=== PATIENT | female | born 1955 | race Caucasian/White ===

== ENCOUNTER 2019-02-03 08:27 | Inpatient (IN) | payer MEDICARE, BC ==
[~2019-02-03] VITALS: Ht 167.6 cm; Wt 73.0 kg
--- NOTE | 2019-02-03 08:35 | NUR ---
ROBIN, FROM HOME, C/O LEFT HIP PAIN S/P FALL LAST NIGHT, -KO, 03/05PS. PATIENT A/OX4, BREATHING EVEN AND UNALBORED, KEPT COMFORTABLE IN BED, CHANGED INTO GOWN AND ATTACHED TO SENIOR VICE PRESIDENT. NEEDS ATTENDED. DR. RUSH AT BEDSIDE FOR EVAL.
[2019-02-03] MEDS ORDERED: ONDANSETRON HCL/PF 4 MG/2 ML VIAL ONE (08:41)
[2019-02-03] MEDS ORDERED: HYDROMORPHONE 1 MG/1 ML DISP.SYRIN ONE ×2 (08:41→09:06)
[2019-02-03 08:51] LABS: BASOPHILS # (AUTO) 0.1 /CMM (0.0-0.2); BASOPHILS % (AUTO) 0.7 % (0.0-2.0); EOSINOPHILS % (AUTO) 0.3 % (0.0-6.0); HEMATOCRIT 43 % (33-45); HEMOGLOBIN 14.7 g/dL (11.5-14.8); LYMPHOCYTES # (AUTO) 1.2 /CMM (0.8-4.8); LYMPHOCYTES % (AUTO) 10.9 % (20.0-44.0); MEAN CORPUSCULAR HGB CONC 34 g/dl (31.0-36.0); MEAN CORPUSCULAR VOLUME 92 fL (82-100); MONOCYTES % (AUTO) 9.3 % (2.0-12.0); NEUTROPHILS # (AUTO) 8.7 /CMM (1.8-8.9); NEUTROPHILS % (AUTO) 78.8 % (43.0-81.0); PLATELET COUNT (AUTO) 305 /CMM (150-450); RED BLOOD CELL COUNT(AUTO) 4.66 MIL/uL (4.0-5.2); WHITE BLOOD COUNT (AUTO) 11.1 K/uL (4.3-11.0)
[2019-02-03 08:57] LABS: CALCIUM, SERUM 8.9 mg/dL (8.5-10.1); CREATININE 0.9 mg/dL (0.6-1.3); POTASSIUM 4.3 mmol/L (3.5-5.1)
[2019-02-03] MEDS ORDERED: HYDROMORPHONE INJ 2 MG/ML DISP.SYRIN IV ONE (09:00)
[2019-02-03] MEDS ORDERED: HYDROMORPHONE 1 MG/1 ML DISP.SYRIN IV ONE (09:00)
[2019-02-03] MEDS ORDERED: ONDANSETRON HCL/PF 4 MG/2 ML VIAL IVP ONE (09:00)
[2019-02-03] MEDS ORDERED: IV NS 0.9% 500 ML BAG IV ONE (09:00)
[2019-02-03 09:02] LABS: ALBUMIN 3.7 g/dL (3.4-5.0); BILIRUBIN,DIRECT 0.1 mg/dL (0.0-0.2); BILIRUBIN,TOTAL 0.6 mg/dL (0.2-1.0); TOTAL PROTEIN, SERUM 7.5 g/dL (6.4-8.2)
[2019-02-03 09:09] LABS: APPEARANCE,URINE Clear (CLEAR); BILIRUBIN,URINE Negative (NEGATIVE); BLOOD, URINE Large Ery/uL (NEGATIVE); COLOR,URINE Yellow (YELLOW); KETONES,URINE Negative (NEGATIVE); LEUKOCYTE ESTERASE ,URINE Negative (NEGATIVE); NITRITE, URINE Negative (NEGATIVE); PH,URINE 5.5 (5.0-8.0); PROTEIN,URINE Negative (NEGATIVE); UGLUCOSE Negative (NEGATIVE); UROBILINOGEN,URINE 0.2 EU/dL (0.2)
[2019-02-03 09:17] LABS: BACTERIA,URINE Few /HPF (None Seen); SQUAMOUS EPITHELIAL CELL,UR Few /HPF (None Seen); WBC,URINE 0-2 /HPF (0-3)
--- NOTE | 2019-02-03 09:30 | NUR ---
RING PACKER AT BEDSIDE FOR X-RAY.
--- NOTE | 2019-02-03 09:34 | NUR ---
called ortho. Bon Schwartz personal loan specialist.
[2019-02-03] MEDS ORDERED: ESCI10TA PO (09:52)
[2019-02-03] MEDS ORDERED: METO-358 PO (09:52)
--- NOTE | 2019-02-03 10:04 | NUR ---
[facility] ASSIGNMENT [id number]
--- NOTE | 2019-02-03 10:28 | NUR ---
REPORT GIVEN TO CLOVIS CORBIN FOR SOLO.
--- NOTE | 2019-02-03 10:57 | NUR ---
RECEIVED A CALL BACK FROM DR. ESCOTO. ACCEPTED PATIENT. PAGED [facility] FOR ADMISSION.
--- NOTE | 2019-02-03 11:14 | NUR ---
[facility] PAGED
[2019-02-03 11:40] VITALS: BP 192/92
--- NOTE | 2019-02-03 11:40 | NUR ---
WREATH INSPECTOR NOTES RECEIVED PATIENT FROM ER VIA [facility]. PATIENT HAD GLF, DIAGNOSIS OF LEFT HIP FRACTURE. PATIENT A/OX4. ABLE TO MAKE NEEDS KNOWN. NOT IN ANY FOR OF DISTRESS. NO SOB, TOLERATING ROOM AIR, SATTING 96%. DENIED PAIN AT THIS TIME, JUST MEDICATED IN ER. IV ACCESS LEFT AC 20 INTACT AND PATENT. LEON CATH IN PLACE DRAINING CLEAR YELLOW URINE. ORIENTED PATIENT TO THE ROOM, TAUGHT HER HOW TO USE THE CALL LIGHT AND INSTRUCTED TO PRESS CALL LIGHT FOR ASSISTANCE. BELONGINGS CHECKED BY JOSE BLACK. PATIENT REFUSED SKIN ASSESSMENT/BODY CHECK AND PHOTOS IT IS VERY PAINFUL TO MOVE, WILL COMEBACK LATER. KEPT PATIENT SAFE AND COMFORTABLE. BED IN LOW/LOCKED POSITION, SIDERAILSUPX2,CALL LIGHT IN REACH. WILL CONTINUE TO MONOTR ACCORDINGLY.
[2019-02-03] MEDS ORDERED: Z GUARD REMEDY 2 OZ OINT TP PRN (12:00)
[2019-02-03] MEDS ORDERED: MAGNESIUM HYDROXIDE 30 ML UDC PO PRN (12:00)
[2019-02-03] MEDS ORDERED: MAG HYDROX/AL HYDROX/SIMETH 30 ML UDC PO PRN (12:00)
[2019-02-03] MEDS ORDERED: HYDROCODONE/APAP 5/325MG 1 EACH TABLET PO PRN (12:00)
[2019-02-03] MEDS ORDERED: ACETAMINOPHEN 325 MG TABLET PO PRN (12:00)
[2019-02-03] MEDS ORDERED: MORPHINE SULFATE INJ 2 MG/ML DISP.SYRIN IV PRN (12:00)
[2019-02-03] MEDS ORDERED: ONDANSETRON HCL/PF 4 MG/2 ML VIAL IVP PRN (12:00)
[2019-02-03] MEDS ORDERED: ZOLPIDEM TARTRATE 5 MG TABLET PO PRN (12:00)
[2019-02-03] MEDS: HYDROCODONE/APAP 5/325MG 1 EACH TABLET PO PRN ×3 (12:23→21:41)
--- NOTE | 2019-02-03 12:23 | NUR ---
DR CARY AT BEDSIDE TALKING TO PATIENT
[2019-02-03] MEDS: METOPROLOL SUCCINATE 50 MG TAB.SR.24H PO SCH (12:41)
[2019-02-03 13:45] VITALS: BP 131/63
--- NOTE | 2019-02-03 14:00 | NUR ---
RN NOTES CAME BACK TO REASSESS PATINE SKIN AND BODY CHECK. PATIENT STILL REFUSED. PER PATIENT, "I DONT WANT TO RISK IT. I HAVE NO WOUNDS.". PATIENT STILL REFUSED BODY CHECK AND REFUSED TO BE MOVED EVEN WITH PAIN MEDICATIONS.
[2019-02-03 16:00] VITALS: BP 160/84
--- NOTE | 2019-02-03 16:40 | NUR ---
RN NOTES PATIENT REPORTED THAT MORPHINE 2MG Q4H EFFECTIVENESS DOESNT LAST LONG ENOUGH. NOTIFIED DR CARY, ORDERED TO CHANGE FREQUENCY TO Q3H PRN. ORDER NOTED AND WILL CARRY OUT
[2019-02-03] MEDS: MORPHINE SULFATE INJ 2 MG/ML DISP.SYRIN IV PRN ×3 (16:51→23:03)
[2019-02-03] MEDS ORDERED: ESCITALOPRAM OXALATE (10 MG) 10 MG TABLET PO ONE (17:00)
--- NOTE | 2019-02-03 19:30 | NUR ---
RN PM OPENING NOTE BEDSIDE REPORT RECIEVED FROM CLOVIS CORBIN. PATIENT SEEN RESTING IN BED IN NO APPARENT DISTRESS. HERE FOR LEFT HIP FX. POC REVIEWED QUESTIONS CONCERNS ADDRESSED.PATIENT BREATHING EVEN AND UNLABORED ON RA. PER REPORT THERE IS A PLAN TO HAVE PATIENT TRANSFERRED TO [facility] TOMORROW. PAIN MANAGEMENT PLAN REVIEWED WITH PATIENT REPORTS THAT PAIN TO HER LEFT HIP IS RATED AT 7/10. WILL CONT TO MONITOR.
--- NOTE | 2019-02-03 19:41 | NUR ---
RN CLOSING NOTES PATIENT IN BED RESTING. ALL NEEDS ATTENDED AND PROVIDED. ALL DUE MEDICATIONS GIVEN ORDERED. KEPT PATIENT SAFE AND COMFORTABLE. BED IN LOW/LOCKED POSITION, SIDERAILS UPX2,CALL LIGHTS IN REACH. ENDORSED TO NIGHT RN FOR SOLO.
[2019-02-03 20:00] VITALS: BP 112/66
--- NOTE | 2019-02-03 21:05 | NUR ---
patient refusing to have skin evaluated. patient refusing to be repositiened and have old sheets and blankets removed from her bed. patient still laying on her bedsheets from home. patient informed that not removing extra sheets increased her risk for skin damage d/t inability to move with fx hip. patient states" it just hurts too much to move. i really don't want to be repositioned if i change my mind then i can let you know."
--- NOTE | 2019-02-03 22:00 | NUR ---
Surgery scheduled for tomorrow cancelled spoke with patient and informed her that she was scheduled for surgery tomorrow am with dr. bang for intramedullary rodding of left hip. patient states, "No, i don't want to have surgery here. i havent even seen a doctor yet to discuss such a surgery. Id rather be transferred out. Dr. Bang informed [place] [address]/04/19 obtained.
[2019-02-04] MEDS: MORPHINE SULFATE INJ 2 MG/ML DISP.SYRIN IV PRN ×5 (02:20→14:44)
--- NOTE | 2019-02-04 06:30 | NUR ---
iv infiltration during morphine administration. while administereing morphine iv infiltrated and ws leaking at site. full dose not delivered. 0640 new 20 gauge iv started to left forearm. patient still reporting 8/10 pain to left hip. [phone] [facility] doctor paged. to ask for additional dose of pain medication.
[2019-02-04] MEDS ORDERED: IV NS 0.9% 1,000 ML IV PRN (07:03)
[2019-02-04] MEDS: HYDROCODONE/APAP 5/325MG 1 EACH TABLET PO PRN ×2 (07:28→11:36)
--- NOTE | 2019-02-04 07:28 | NUR ---
report given to keshawn. aeronautics teacher has not called back. norco administered for pain in the meantime per patients requestt. patient also given ice to ice left hip while awaiting epic response.
[2019-02-04 08:00] VITALS: BP 161/75
--- NOTE | 2019-02-04 08:00 | NUR ---
MS RN AM OPENING NOTE PATIENT RESTING IN BED IN NO APPARENT DISTRESS. HERE FOR LEFT HIP FX. C/O SEVERE PAIN.NORCO PO GIVEN PRN.POC REVIEWED QUESTIONS CONCERNS ADDRESSED.PATIENT BREATHING EVEN AND UNLABORED ON RA. ON BEDREST WITH NWB ON LLE. AWAITING TO BE TRANSFERRED TO [facility] -WILL FOLLOW UP WITH SENIOR ADMINISTRATOR SUPPORT,RINKU.EMERALD. PAIN MANAGEMENT DONE ORDERED. SEEN BY DR PAZ AND DR CARY.WILL CONT TO MONITOR.
[2019-02-04 08:14] LABS: BASOPHILS # (AUTO) 0.1 /CMM (0.0-0.2); BASOPHILS % (AUTO) 0.8 % (0.0-2.0); EOSINOPHILS % (AUTO) 1.7 % (0.0-6.0); HEMATOCRIT 39 % (33-45); HEMOGLOBIN 13.2 g/dL (11.5-14.8); LYMPHOCYTES # (AUTO) 1.4 /CMM (0.8-4.8); LYMPHOCYTES % (AUTO) 11.9 % (20.0-44.0); MEAN CORPUSCULAR HGB CONC 34 g/dl (31.0-36.0); MEAN CORPUSCULAR VOLUME 93 fL (82-100); MONOCYTES # (AUTO) 1.1 /CMM (0.1-1.30); MONOCYTES % (AUTO) 9.2 % (2.0-12.0); NEUTROPHILS # (AUTO) 8.8 /CMM (1.8-8.9); NEUTROPHILS % (AUTO) 76.4 % (43.0-81.0); PLATELET COUNT (AUTO) 257 /CMM (150-450); RED BLOOD CELL COUNT(AUTO) 4.19 MIL/uL (4.0-5.2); WHITE BLOOD COUNT (AUTO) 11.5 K/uL (4.3-11.0)
[2019-02-04] MEDS ORDERED: MORPHINE SULFATE INJ 2 MG/ML DISP.SYRIN IV ONE (08:20)
[2019-02-04 08:31] LABS: CALCIUM, SERUM 8.7 mg/dL (8.5-10.1); CREATININE 0.7 mg/dL (0.6-1.3); MAGNESIUM 1.8 mg/dL (1.8-2.4); PHOSPHORUS 2.6 mg/dL (2.5-4.9); POTASSIUM 4.3 mmol/L (3.5-5.1)
[2019-02-04 08:35] LABS: ALBUMIN 3.2 g/dL (3.4-5.0); BILIRUBIN,TOTAL 0.6 mg/dL (0.2-1.0); CALCIUM, SERUM 8.8 mg/dL (8.5-10.1); CREATININE 0.7 mg/dL (0.6-1.3); MAGNESIUM 1.9 mg/dL (1.8-2.4); PHOSPHORUS 2.7 mg/dL (2.5-4.9); POTASSIUM 4.3 mmol/L (3.5-5.1); TOTAL PROTEIN, SERUM 6.9 g/dL (6.4-8.2)
[2019-02-04] MEDS ORDERED: IBUPROFEN 600 MG TABLET PO ONE (09:00)
[2019-02-04] MEDS ORDERED: ESCITALOPRAM OXALATE (10 MG) 10 MG TABLET PO SCH (09:00)
[2019-02-04 09:13] VITALS: BP 161/75
[2019-02-04] MEDS: METOPROLOL SUCCINATE 50 MG TAB.SR.24H PO SCH (09:13)
--- NOTE | 2019-02-04 14:00 | NUR ---
REPORT CALLED IN TO EMERALD NICHOLS OF [facility].PT WILL BE IN ROOM 9205 AND WILL BE SEEING DR SWANSON.
--- NOTE | 2019-02-04 15:15 | NUR ---
DISCHARGED PT TO [facility] VIA AMBULANCE WITH STABLE V/S.MORPHINE SO4 2 MG IV GIVEN AT 2:40pM.PT DENIES ANY DISTRESS.STILL WITH LT HIP FX DISCOMFORT MANAGED BY MSO4 WITH EFFECTIVE RESULT DURING TRANSFER.IV H/L REMAINS INTACT TO RFA #20.NO S/S OF INFILTRATION NOTED ON THE SITE. WHO WAS PRESENT AT BEDSIDE WILL SEE THE PT IN [facility]
== END 2019-02-04 15:15 | disposition short-term general hospital (02) | DRG 536 ==
LOC: ER 08:29 → MED 10:19
PROVIDERS: ADMIT Family Medicine; ATTEND Family Medicine
DX: S72.142A Displaced intertrochanteric fracture of left femur, initial encounter for closed fracture (principal); D72.829 Elevated white blood cell count, unspecified; F32.9 Major depressive disorder, single episode, unspecified; I10 Essential (primary) hypertension; M16.0 Bilateral primary osteoarthritis of hip; R73.9 Hyperglycemia, unspecified; F17.210 Nicotine dependence, cigarettes, uncomplicated; Z82.49 Family history of ischemic heart disease and other diseases of the circulatory system; Z82.3 Family history of stroke; W19.XXXA Unspecified fall, initial encounter; R79.89 Other specified abnormal findings of blood chemistry; Y92.009 Unspecified place in unspecified non-institutional (private) residence as the place of occurrence of the external cause
CPT/HCPCS: 36415; 71045-TC; 73502; 73552; 80048-TC; 80053-TC; 80061-TC; 80076-TC; 81000-TC; 82550-TC; 83735-TC; 84100-TC; 85025-TC; 85730-TC; 87081-TC; G0378; J1170; J2270; J2405; J7030; J7040

== ENCOUNTER 2023-03-03 07:30 | Emergency (ER) | payer BC, MEDICARE ==
[~2023-03-03] VITALS: Ht 167.6 cm; Wt 60.8 kg
[~2023-03-03 07:30] MED LIST: ESCI10TA PO; METO-358 PO
[2023-03-03] MEDS ORDERED: HYDROCODONE/APAP 5/325MG TABLET PO ONE (08:30)
[2023-03-03] MEDS ORDERED: NAPR-1009 PO (08:36)
[2023-03-03] MEDS ORDERED: HYDR-4303 PO (08:36)
[2023-03-03] MEDS ORDERED: HYDROCODONE/APAP 5/325MG TABLET ONE (08:40)
[2023-03-03 09:35] VITALS: BP 130/86; TEMP 98.4; O2SAT 99
== END 2023-03-03 09:35 | disposition home or self-care (01) ==
LOC: ER 07:41
DX: S42.291A Other displaced fracture of upper end of right humerus, initial encounter for closed fracture (principal); I10 Essential (primary) hypertension; F17.200 Nicotine dependence, unspecified, uncomplicated; Z88.5 Allergy status to narcotic agent; W01.0XXA Fall on same level from slipping, tripping and stumbling without subsequent striking against object, initial encounter; Y93.89 Activity, other specified; Y92.89 Other specified places as the place of occurrence of the external cause; Y99.8 Other external cause status
CPT/HCPCS: 73030-TC

== ENCOUNTER 2023-04-18 10:35 | Inpatient (IN) | payer MEDICARE, BC ==
[~2023-04-18] VITALS: Ht 167.6 cm; Wt 64.0 kg
[~2023-04-18 10:35] MED LIST changes: +HYDR-4303 PO; +NAPR-1009 PO
[2023-04-18] MEDS ORDERED: TYL2T PO (11:18)
[2023-04-18 11:22] LABS: BASOPHILS # (AUTO) 0.1 K/uL (0.0-0.2); BASOPHILS % (AUTO) 1.1 % (0.0-2.0); EOSINOPHILS # (AUTO) 0.1 K/uL (0.0-0.7); EOSINOPHILS % (AUTO) 1.4 % (0.0-6.0); HEMATOCRIT 46 % (33-45); HEMOGLOBIN 15.5 g/dL (11.5-14.8); LYMPHOCYTES # (AUTO) 1.9 K/uL (0.8-4.8); LYMPHOCYTES % (AUTO) 19.5 % (20.0-44.0); MEAN CORPUSCULAR HEMOGLOBIN 30 PG (26.0-33.0); MEAN CORPUSCULAR HGB CONC 33 g/dl (31.0-36.0); MEAN CORPUSCULAR VOLUME 90 fL (82-100); MONOCYTES # (AUTO) 0.5 K/uL (0.1-1.30); MONOCYTES % (AUTO) 5.2 % (2.0-12.0); NEUTROPHILS % (AUTO) 72.8 % (43.0-81.0); PLATELET COUNT (AUTO) 371 K/uL (150-450); RED BLOOD CELL COUNT(AUTO) 5.14 MIL/uL (4.0-5.2); RED CELL DISTRIBUTION WIDTH 15.3 % (11.5-15.0); WHITE BLOOD COUNT (AUTO) 9.6 K/uL (4.3-11.0)
[2023-04-18 11:26] LABS: APPEARANCE,URINE CLEAR (CLEAR); BILIRUBIN,URINE NEGATIVE (NEGATIVE); BLOOD, URINE TRACE-INTA Ery/uL (NEGATIVE); COLOR,URINE YELLOW (YELLOW); KETONES,URINE 1+ mg/dL (NEGATIVE); LEUKOCYTE ESTERASE ,URINE NEGATIVE (NEGATIVE); NITRITE, URINE NEGATIVE (NEGATIVE); PH,URINE 5.5 (5.0-8.0); PROTEIN,URINE NEGATIVE (NEGATIVE); UGLUCOSE NEGATIVE (NEGATIVE); UROBILINOGEN,URINE 0.2 EU/dL (0.2)
[2023-04-18 11:31] LABS: ADD URINE CULTURE NO; BACTERIA,URINE Rare /HPF (None Seen); RBC,URINE 0-2 /HPF (0-2); SQUAMOUS EPITHELIAL CELL,UR Few /HPF (None Seen); WBC,URINE 0-2 /HPF (0-3)
[2023-04-18 11:35] LABS: INR 0.93 (0.91-1.10); PARTIAL THROMBOPLASTIN TIME 25.4 SEC (24.3-34.3); PROTHROMBIN TIME 9.9 SECS (9.2-11.1)
[2023-04-18 11:44] LABS: ALANINE AMINOTRANSFERASE 48 U/L (12-78); ALBUMIN 3.6 g/dL (3.4-5.0); ALKALINE PHOSPHATASE 84 U/L (46-116); ASPARTATE AMINOTRANSFERASE 46 U/L (15-37); BILIRUBIN,DIRECT 0.1 mg/dL (0.0-0.2); BILIRUBIN,TOTAL 0.5 mg/dL (0.2-1.0); CALCIUM, SERUM 9.6 mg/dL (8.5-10.1); CARBON DIOXIDE 23 mmol/L (21-32); CHLORIDE 101 mmol/L (98-107); CREATININE 1.1 mg/dL (0.6-1.3); GLUCOSE 115 mg/dL (74-106); POTASSIUM 4.8 mmol/L (3.5-5.1); SODIUM SERUM 135 mmol/L (136-145); TOTAL PROTEIN, SERUM 7.8 g/dL (6.4-8.2); UREA NITROGEN, BLOOD 25 mg/dL (7-18)
[2023-04-18] MEDS ORDERED: IOHEXOL-350 100 ML VIAL IV ONE (12:08)
[2023-04-18] MEDS ORDERED: ASPIRIN 325 MG TABLET PO ONE (12:30)
[2023-04-18] MEDS ORDERED: ENALAPRILAT DIHYD. (2.5MG/2ML) 1.25 MG/ML VIAL IV ONE (12:30)
[2023-04-18] MEDS ORDERED: ENALAPRILAT INJ (1.25 MG/ML) 1.25 MG/ML VIAL IV ONE (13:00)
[2023-04-18] MEDS ORDERED: ASPIRIN 325 MG TABLET ONE (13:01)
[2023-04-18 14:30] VITALS: BP 194/81; TEMP 98.1; O2SAT 96
[2023-04-18] MEDS ORDERED: hydrALAZINE HCL IV 20 MG VIAL IV PRN ×2 (15:30→16:30)
[2023-04-18 16:08] VITALS: BP 194/81; TEMP 98.4; O2SAT 96
[2023-04-18 16:30] VITALS: BP 114/70
[2023-04-18] MEDS: NICOTINE PATCH (21MG) 21 MG PATCH.TD24 TD SCH (17:00)
[2023-04-18] MEDS: BLOOD SUGAR DIAGNOSTIC 1 EACH STRIP IN SCH ×2 (17:32→21:18)
[2023-04-18] MEDS ORDERED: BLOOD SUGAR DIAGNOSTIC 1 EACH STRIP IN SCH (18:00)
[2023-04-18] MEDS: ACETAMINOPHEN 325 MG TABLET PO PRN (19:57)
[2023-04-18 20:00] VITALS: BP 170/70; TEMP 97.5; O2SAT 93
[2023-04-18] MEDS: SIMVASTATIN 20 MG TABLET PO SCH (21:19)
[2023-04-19 06:18] LABS: BASOPHILS # (AUTO) 0.1 K/uL (0.0-0.2); BASOPHILS % (AUTO) 0.8 % (0.0-2.0); EOSINOPHILS # (AUTO) 0.2 K/uL (0.0-0.7); HEMATOCRIT 44 % (33-45); HEMOGLOBIN 14.3 g/dL (11.5-14.8); LYMPHOCYTES # (AUTO) 1.6 K/uL (0.8-4.8); LYMPHOCYTES % (AUTO) 21.5 % (20.0-44.0); MEAN CORPUSCULAR HEMOGLOBIN 29 PG (26.0-33.0); MEAN CORPUSCULAR HGB CONC 32 g/dl (31.0-36.0); MEAN CORPUSCULAR VOLUME 90 fL (82-100); MONOCYTES # (AUTO) 0.6 K/uL (0.1-1.30); MONOCYTES % (AUTO) 8.2 % (2.0-12.0); NEUTROPHILS % (AUTO) 66.5 % (43.0-81.0); PLATELET COUNT (AUTO) 361 K/uL (150-450); RED BLOOD CELL COUNT(AUTO) 4.88 MIL/uL (4.0-5.2); RED CELL DISTRIBUTION WIDTH 14.8 % (11.5-15.0); WHITE BLOOD COUNT (AUTO) 7.6 K/uL (4.3-11.0)
[2023-04-19 06:38] LABS: INR 0.95 (0.91-1.10); PARTIAL THROMBOPLASTIN TIME 32.7 SEC (24.3-34.3); PROTHROMBIN TIME 10.1 SECS (9.2-11.1)
[2023-04-19] MEDS: BLOOD SUGAR DIAGNOSTIC 1 EACH STRIP IN SCH ×4 (06:47→21:53)
[2023-04-19 06:55] LABS: CALCIUM, SERUM 9.4 mg/dL (8.5-10.1); POTASSIUM 3.8 mmol/L (3.5-5.1)
[2023-04-19 07:07] LABS: THYROID STIMULATING HORMONE 2.514 uIU/mL (0.358-3.74)
[2023-04-19 08:42] VITALS: BP 160/72; TEMP 98; O2SAT 94
[2023-04-19] MEDS: NICOTINE PATCH (21MG) 21 MG PATCH.TD24 TD SCH ×2 (08:48→17:33)
[2023-04-19] MEDS: ACETAMINOPHEN 325 MG TABLET PO PRN (08:48)
[2023-04-19] MEDS ORDERED: ASPIRIN EC 325 MG TABLET.DR PO SCH (09:00)
[2023-04-19] MEDS: AMLODIPINE BESYLATE 5 MG TABLET PO SCH (14:19)
[2023-04-19 20:00] VITALS: BP 150/63; TEMP 97.9; O2SAT 94
[2023-04-19] MEDS: SIMVASTATIN 20 MG TABLET PO SCH (21:54)
[2023-04-20] VITALS: BP 168/79; TEMP 98; O2SAT 96
[2023-04-20 04:00] VITALS: BP 165/70; TEMP 98; O2SAT 97
[2023-04-20] MEDS: BLOOD SUGAR DIAGNOSTIC 1 EACH STRIP IN SCH ×2 (06:36→12:00)
[2023-04-20 07:00] VITALS: BP 166/88; TEMP 98.2; O2SAT 97
[2023-04-20] MEDS: AMLODIPINE BESYLATE 5 MG TABLET PO SCH (08:48)
[2023-04-20] MEDS: NICOTINE PATCH (21MG) 21 MG PATCH.TD24 TD SCH (08:48)
[2023-04-20] MEDS ORDERED: ASPIRIN 81 MG TAB.CHEW PO SCH (09:00)
[2023-04-20] MEDS ORDERED: AMLODIPINE BESYLATE 10 MG TABLET PO SCH (09:30)
[2023-04-20] MEDS ORDERED: AMLO-213 PO (11:19)
[2023-04-20] MEDS ORDERED: SIMV-49 PO (11:19)
[2023-04-20] MEDS ORDERED: ASPI-1169 PO (11:19)
[2023-04-20 12:15] VITALS: BP 157/80; TEMP 98.1; O2SAT 97
== END 2023-04-20 14:15 | disposition home or self-care (01) | DRG 66 ==
LOC: ER 10:43 → TELE 13:59
PROVIDERS: ADMIT Nurse Practitioner Acute Care; ATTEND Nurse Practitioner Acute Care
DX: I63.212 Cerebral infarction due to unspecified occlusion or stenosis of left vertebral artery (principal); G45.9 Transient cerebral ischemic attack, unspecified; I16.0 Hypertensive urgency; I10 Essential (primary) hypertension; F17.210 Nicotine dependence, cigarettes, uncomplicated; E86.0 Dehydration; R29.701 NIHSS score 1; Z82.3 Family history of stroke; Z82.49 Family history of ischemic heart disease and other diseases of the circulatory system; R47.81 Slurred speech; I70.8 Atherosclerosis of other arteries; Z71.6 Tobacco abuse counseling; R29.700 NIHSS score 0; Z20.822 Contact with and (suspected) exposure to COVID-19
CPT/HCPCS: 36415; 70450-TC; 70496-TC; 70498-TC; 71045-TC; 80048-TC; 80061-TC; 80076-TC; 81001; 82465-TC; 82962-TC; 84443-TC; 84484-TC; 85025-TC; 85730-TC; 87081-TC; 92507-TC; 92521; 93307-TC; 97110-TC; 97112-TC; 97116-TC; 97530-TC; C9803; G0378; J0360; J3490; Q9967